=== PATIENT | female | born 1970 | race Caucasian/White ===

== ENCOUNTER 2021-10-15 03:30 | Inpatient (IN) | payer MEDICAID, SELFPAY ==
[~2021-10-15] VITALS: Ht 160 cm; Wt 81.2 kg
[2021-10-15 03:36] VITALS: BP 162/94
--- NOTE | 2021-10-15 03:42 | NUR ---
pt ambulated to bed #5
--- NOTE | 2021-10-15 03:49 | NUR ---
Patient BIB by family from home. C/O LLQ abdominal pain x 1 day. Patient reported, had LLQ abdominal pain since yesterday, vomiting , no diarrhea.
--- NOTE | 2021-10-15 04:12 | NUR ---
Dr. Luke at bedside to exam patient.
[2021-10-15] MEDS ORDERED: NACL 0.9% 1,000 ML IV ONE ×2 (04:15→05:45)
[2021-10-15] MEDS ORDERED: MORPHINE SULFATE 4 MG/ML SYR IVP ONE (04:15)
[2021-10-15] MEDS ORDERED: ONDANSETRON 4 MG/2 ML VIAL IVP ONE (04:25)
--- NOTE | 2021-10-15 04:38 | NUR ---
Patient transfer to radiology dept via wheelchair with radiolody tech.
--- NOTE | 2021-10-15 04:45 | NUR ---
Patient return back to bed.
[2021-10-15 04:58] LABS: BASOPHILS # (AUTO) 0.1 K/uL (0.00-0.22); BASOPHILS % (AUTO) 0.7 % (0.0-2.0); EOSINOPHILS # (AUTO) 0.2 K/uL (0-0.4); EOSINOPHILS % (AUTO) 2.4 % (0.0-4.0); HEMATOCRIT 40.7 % (36-48); LYMPHOCYTES % (AUTO) 23.1 % (20.5-51.1); MEAN CORPUSCULAR HEMOGLOBIN 23 pg (27-31); MEAN CORPUSCULAR HGB CONC 32 g/dL (33-37); MONOCYTES # (AUTO) 0.6 K/uL (0.8-1.0); MONOCYTES % (AUTO) 7.6 % (1.7-9.3); NEUTROPHILS # (AUTO) 5.6 K/uL (1.8-7.7); NEUTROPHILS % (AUTO) 66.2 % (42.2-75.2); PLATELET COUNT (AUTO) 322 K/uL (140-450); RED BLOOD CELL COUNT(AUTO) 5.57 MIL/uL (4.20-5.40); RED CELL DISTRIBUTION WIDTH 18.9 % (11.6-13.7); WHITE BLOOD COUNT (AUTO) 8.5 K/uL (4.8-10.8)
--- NOTE | 2021-10-15 05:28 | NUR ---
Patient reported, [facility] abdominal pain 05/07, Dr. Luke notified.
[2021-10-15] MEDS ORDERED: KETOROLAC 30 MG/ML VIAL IVP ONE (05:35)
[2021-10-15] MEDS ORDERED: cefTRIAXone 1,000 MG VIAL ONE ×2 (05:35→09:18)
[2021-10-15 06:33] LABS: ALBUMIN 3.6 g/dL (3.4-5.0); ANION GAP 15.8 (8-16); CREATININE 0.8 mg/dL (0.6-1.3); POTASSIUM 3.8 mmol/L (3.5-5.1); TOTAL BILIRUBIN 0.7 mg/dL (0.0-1.0)
--- NOTE | 2021-10-15 06:42 | NUR ---
Patient's family at bedside.
--- NOTE | 2021-10-15 07:11 | NUR ---
Report given Mod[place], CLEMENTE and endorse care of patient.
--- NOTE | 2021-10-15 07:12 | NUR ---
REPORT RECEIVED FROM ROSIE BROWN FOR PATIENT CONTINUITY OF CARE.
--- NOTE | 2021-10-15 08:20 | NUR ---
PATIENT RESTING IN BED, NO SIGNS OF DISTRESS NOTED, SAFETY PRECAUTIONS PUT INTO PLACE. WILL CONTINUE TO MONITOR.
--- NOTE | 2021-10-15 08:50 | NUR ---
PATIENT PROVIDED W/ BREAKFAST TRAY AT BEDSIDE, ALL PATIENT NEEDS MET AT THIS TIME.
[2021-10-15] MEDS ORDERED: POTASSIUM CHLORIDE 10 MEQ TABER PO PRN (09:05)
[2021-10-15] MEDS ORDERED: MAG SULF 2000 MG/WATER PREMIX 50 ML IV PRN (09:05)
[2021-10-15] MEDS ORDERED: ONDANSETRON 4 MG/2 ML VIAL IM/IVP PRN (09:10)
[2021-10-15] MEDS ORDERED: ZOLPIDEM 5 MG TAB PO PRN (09:10)
[2021-10-15] MEDS ORDERED: HYDROcodone/APAP 5/325 MG 1 TAB TAB PO PRN (09:10)
[2021-10-15] MEDS ORDERED: ACETAMINOPHEN 325 MG TAB PO PRN (09:10)
[2021-10-15] MEDS ORDERED: DOCUSATE SODIUM 100 MG GELCAP PO PRN (09:10)
[2021-10-15] MEDS ORDERED: MORPHINE SULFATE 2 MG/ML SYR IVP PRN (09:10)
[2021-10-15] MEDS ORDERED: LORazepam 2 MG/ML VIAL IM/IVP PRN (09:10)
[2021-10-15] MEDS: TAMSULOSIN 0.4 MG CAP PO SCH (09:59)
[2021-10-15] MEDS: NACL 0.9% 1,000 ML IV SCH ×2 (10:00→17:44)
--- NOTE | 2021-10-15 10:02 | NUR ---
LAB AT PATIENT BEDSIDE
--- NOTE | 2021-10-15 10:23 | NUR ---
RAD AT PATIENT BEDSIDE
[2021-10-15 10:46] LABS: PROTHROMBIN TIME 10.1 secs (10.8-13.4)
[2021-10-15 10:56] LABS: CHOL/HDL RATIO 3.7 (1-4.5); THYROID STIMULATING HORMONE 0.63 uIU/mL (0.34-3.74)
--- NOTE | 2021-10-15 14:35 | NUR ---
Patient will be admitted to care of DR CHAO. Admited to MED SURG. Will go to room 105A. Belongings list completed. Report to ROSIE REESE.
--- NOTE | 2021-10-15 14:37 | NUR ---
PATIENT HAS BEEN SCREENED AND CATEGORIZED MODERATE NUTRITION RISK. PATIENT WILL BE SEEN WITHIN 3-5 DAYS OF ADMISSION. Y[address]
--- NOTE | 2021-10-15 14:45 | NUR ---
PATIENT ADMITTED INTO ROOM 105A FROM ED VIA WHEELCHAIR. PATIENT ABLE TO AMBULATE WITH STEADY GAIT FROM W/C TO BED. PATIENT IS ALERT AND ORIENTED X 4, NO C/O PAIN DURING ADMISSION. LEFT AC IV 20G INTACT WITH ONGOING NS @ 120ML/HR. ORIENTATION PROVIDED RE:ROOM AND UNIT.
[2021-10-15 16:32] VITALS: BP 132/67
[2021-10-15 21:00] VITALS: BP 135/71
[2021-10-16] MEDS: NACL 0.9% 1,000 ML IV SCH ×2 (01:50→09:21)
[2021-10-16 03:38] VITALS: BP 135/71
--- NOTE | 2021-10-16 07:30 | NUR ---
RECEIVED REPORT FROM POUCH MAKER NURSE. PT STABLE
[2021-10-16 07:48] LABS: BASOPHILS % (AUTO) 0.7 % (0.0-2.0); EOSINOPHILS # (AUTO) 0.2 K/uL (0-0.4); HEMATOCRIT 36.2 % (36-48); HEMOGLOBIN 11.7 g/dL (12.0-16.0); LYMPHOCYTES # (AUTO) 1.8 K/uL (2.5-16.5); LYMPHOCYTES % (AUTO) 32.5 % (20.5-51.1); MEAN CORPUSCULAR HEMOGLOBIN 24 pg (27-31); MEAN CORPUSCULAR HGB CONC 32 g/dL (33-37); MEAN CORPUSCULAR VOLUME 72.6 fL (80-94); MONOCYTES # (AUTO) 0.4 K/uL (0.8-1.0); MONOCYTES % (AUTO) 7.7 % (1.7-9.3); NEUTROPHILS # (AUTO) 3.1 K/uL (1.8-7.7); NEUTROPHILS % (AUTO) 56.1 % (42.2-75.2); PLATELET COUNT (AUTO) 289 K/uL (140-450); RED BLOOD CELL COUNT(AUTO) 4.98 MIL/uL (4.20-5.40); RED CELL DISTRIBUTION WIDTH 19.3 % (11.6-13.7); WHITE BLOOD COUNT (AUTO) 5.5 K/uL (4.8-10.8)
[2021-10-16 07:53] LABS: ANION GAP 10.9 (8-16); CREATININE 0.7 mg/dL (0.6-1.3); POTASSIUM 3.9 mmol/L (3.5-5.1)
[2021-10-16 08:00] VITALS: BP 123/56
[2021-10-16 08:08] LABS: PHOSPHORUS 3.1 mg/dL (2.5-4.9)
[2021-10-16 08:33] LABS: APPEARANCE,URINE CLEAR (CLEAR); BILIRUBIN,URINE NEGATIVE (NEGATIVE); BLOOD, URINE 1+ (NEGATIVE); COLOR,URINE YELLOW (YELLOW); LEUKOCYTE ESTERASE ,URINE TRACE (NEGATIVE); NITRITE, URINE NEGATIVE (NEGATIVE); UGLUCOSE NEGATIVE (NEGATIVE)
[2021-10-16 08:52] LABS: BARBITURATE, URINE NEGATIVE ng/ml (NEG <=200); BENZODIAZEPINE, URINE NEGATIVE ng/mL (NEG <=200); CANNABINOID, URINE NEGATIVE ng/mL (NEG <=50); COCAINE, URINE NEGATIVE ng/mL (NEG <=300); PHENCYCLIDINE SCREEN,URINE NEGATIVE ng/mL (NEG <=25)
[2021-10-16 08:53] LABS: OPIATE, URINE POSITIVE ng/mL (NEG <=2000)
[2021-10-16] MEDS: TAMSULOSIN 0.4 MG CAP PO SCH (08:55)
[2021-10-16 09:06] LABS: T4 (THYROXINE) 8.1 ug/dL (4.5-12.0)
[2021-10-16 09:07] LABS: RBC,URINE 0-5 /HPF (0-5); WBC,URINE 0-5 /HPF (0-5)
[2021-10-16] MEDS ORDERED: IBUP-2213 PO (10:05)
[2021-10-16] MEDS ORDERED: TAMS0.4C96 PO (10:05)
[2021-10-16] MEDS ORDERED: CEPH-588 PO (10:11)
--- NOTE | 2021-10-16 10:15 | NUR ---
PT RESTING IN BED, NO S/S OF DISTRESS. PT HAS DC ORDER. WILL BEGIN TO PROCESS AND DETERMINE NARCOTICS AND/OR VICE DETECTIVE TIME. Addendum: 10/16/21 at 1020 by Liana Moran RN RN PT IV FLUIDS WERE STARTED. AND IVPB RUNNING PER MD ORDER. CALL LIGHT IN REACH. ALL SAFETY MEASURES IN PLACE
--- NOTE | 2021-10-16 12:20 | NUR ---
PT DISCHARGING HOME WITH FAMILY. NO S/S OF DISTRESS. ALL PERSONAL BELONGINGS IN POSSESSION. IV REMOVED, CANULA INTACT. ID BAND REMOVED. ALL SAFETY MEASURES IN PLACE
== END 2021-10-16 12:25 | disposition home or self-care (01) | DRG 463 ==
LOC: MED 03:30 → MMU 07:24 → MTU 14:03
DX: N13.6 Pyonephrosis (principal); E86.0 Dehydration; Z20.822 Contact with and (suspected) exposure to COVID-19; K80.20 Calculus of gallbladder without cholecystitis without obstruction; Z98.891 History of uterine scar from previous surgery; Z79.899 Other long term (current) drug therapy
CPT/HCPCS: 36415; 71045; 80048; 80053; 80305; 81001; 82150; 83036; 83605; 83690; 83735; 83880; 84100; 84134; 84436; 84443; 85025; 85610; 85730; 87040; 87081; 87086; 96361; 96365; 96375; 99285; J0696; J1644; J1885; J2270; J2405; J7030; J7060

== ENCOUNTER 2022-04-20 03:25 | Inpatient (IN) | payer MEDICAID, OTHER ==
[~2022-04-20] VITALS: Ht 154.9 cm; Wt 86.2 kg
[~2022-04-20 03:25] MED LIST: CEPH-588 PO; IBUP-2213 PO; TAMS0.4C96 PO
[2022-04-20 03:35] VITALS: BP 167/87
[2022-04-20] MEDS ORDERED: KETOROLAC 30 MG/ML VIAL IVP ONE (03:55)
[2022-04-20] MEDS ORDERED: KETOROLAC 30 MG/ML VIAL ONE (03:59)
[2022-04-20] MEDS ORDERED: NACL 0.9% 1,000 ML IV ONE (04:10)
[2022-04-20] MEDS ORDERED: FAMOTIDINE 20 MG/2 ML VIAL IVP ONE (04:20)
[2022-04-20] MEDS ORDERED: FAMOTIDINE 20 MG/2 ML VIAL ONE (04:22)
[2022-04-20 04:26] LABS: APPEARANCE,URINE CLEAR (CLEAR); BILIRUBIN,URINE NEGATIVE (NEGATIVE); BLOOD, URINE NEGATIVE (NEGATIVE); COLOR,URINE YELLOW (YELLOW); LEUKOCYTE ESTERASE ,URINE NEGATIVE (NEGATIVE); NITRITE, URINE POSITIVE (NEGATIVE); UGLUCOSE NEGATIVE (NEGATIVE)
[2022-04-20 04:26] LABS: BASOPHILS % (AUTO) 0.7 % (0.0-2.0); EOSINOPHILS # (AUTO) 0.3 K/uL (0-0.4); HEMATOCRIT 38.8 % (36-48); HEMOGLOBIN 12.4 g/dL (12.0-16.0); LYMPHOCYTES # (AUTO) 2.2 K/uL (2.5-16.5); LYMPHOCYTES % (AUTO) 31.7 % (20.5-51.1); MEAN CORPUSCULAR HEMOGLOBIN 24 pg (27-31); MEAN CORPUSCULAR HGB CONC 32 g/dL (33-37); MEAN CORPUSCULAR VOLUME 74.1 fL (80-94); MONOCYTES # (AUTO) 0.6 K/uL (0.8-1.0); NEUTROPHILS # (AUTO) 3.9 K/uL (1.8-7.7); NEUTROPHILS % (AUTO) 55.6 % (42.2-75.2); PLATELET COUNT (AUTO) 312 K/uL (140-450); RED BLOOD CELL COUNT(AUTO) 5.23 MIL/uL (4.20-5.40); RED CELL DISTRIBUTION WIDTH 18.7 % (11.6-13.7); WHITE BLOOD COUNT (AUTO) 7.1 K/uL (4.8-10.8)
[2022-04-20 04:50] LABS: ALBUMIN 3.2 g/dL (3.4-5.0); ANION GAP 9.6 (8-16); CARBON DIOXIDE 26.2 mmol/L (21-32); CREATININE 0.8 mg/dL (0.6-1.3); POTASSIUM 3.8 mmol/L (3.5-5.1); TOTAL BILIRUBIN 0.4 mg/dL (0.0-1.0)
[2022-04-20] MEDS ORDERED: PIPERACILLIN/TAZOBACTAM 3.375 GM in DEXTROSE 5% 50 ML IV ONE (06:55)
[2022-04-20] MEDS ORDERED: PIPERACILLIN/TAZOBACTAM 3.375 GM VIAL IV ONE ×2 (07:04→23:04)
[2022-04-20] MEDS ORDERED: ONDANSETRON 4 MG/2 ML VIAL IVP PRN (09:15)
[2022-04-20] MEDS ORDERED: MORPHINE SULFATE 2 MG/ML SYR IVP PRN (09:15)
[2022-04-20] MEDS ORDERED: ACETAMINOPHEN 325 MG TAB PO PRN (09:15)
[2022-04-20] MEDS: NACL 0.9% 1,000 ML IV SCH ×3 (10:02→22:53)
[2022-04-20 11:10] VITALS: BP 146/67
[2022-04-20 16:00] VITALS: BP 124/53
[2022-04-20 20:00] VITALS: BP 134/57
[2022-04-20] MEDS: PIPERACILLIN/TAZOBACTAM 3.375 GM in DEXTROSE 5% 50 ML IV SCH (23:06)
[2022-04-21] VITALS: BP 123/64
[2022-04-21] MEDS ORDERED: PIPERACILLIN/TAZOBACTAM 3.375 GM VIAL IV ONE (04:50)
[2022-04-21] MEDS: PIPERACILLIN/TAZOBACTAM 3.375 GM in DEXTROSE 5% 50 ML IV SCH ×4 (05:05→23:41)
[2022-04-21 07:09] LABS: ANION GAP 9.1 (8-16); CARBON DIOXIDE 26.6 mmol/L (21-32); CREATININE 0.8 mg/dL (0.6-1.3); POTASSIUM 3.7 mmol/L (3.5-5.1)
[2022-04-21 07:11] LABS: BASOPHILS % (AUTO) 0.5 % (0.0-2.0); EOSINOPHILS # (AUTO) 0.3 K/uL (0-0.4); EOSINOPHILS % (AUTO) 4.8 % (0.0-4.0); HEMATOCRIT 37.6 % (36-48); HEMOGLOBIN 12.1 g/dL (12.0-16.0); LYMPHOCYTES % (AUTO) 37.8 % (20.5-51.1); MEAN CORPUSCULAR HEMOGLOBIN 24 pg (27-31); MEAN CORPUSCULAR HGB CONC 32 g/dL (33-37); MEAN CORPUSCULAR VOLUME 74.3 fL (80-94); MONOCYTES # (AUTO) 0.5 K/uL (0.8-1.0); NEUTROPHILS # (AUTO) 2.5 K/uL (1.8-7.7); NEUTROPHILS % (AUTO) 47.9 % (42.2-75.2); PLATELET COUNT (AUTO) 270 K/uL (140-450); RED BLOOD CELL COUNT(AUTO) 5.06 MIL/uL (4.20-5.40); RED CELL DISTRIBUTION WIDTH 18.5 % (11.6-13.7); WHITE BLOOD COUNT (AUTO) 5.2 K/uL (4.8-10.8)
[2022-04-21 07:19] LABS: MAGNESIUM 2.1 mg/dL (1.8-2.4); PHOSPHORUS 2.9 mg/dL (2.5-4.9); PROTHROMBIN TIME 10.3 secs (10.8-13.4)
[2022-04-21 08:00] VITALS: BP 111/65
[2022-04-21] MEDS ORDERED: BUPIVACAINE-MPF 0.25% 30 ML VIAL INJ ONE (08:07)
[2022-04-21] MEDS ORDERED: LIDOCAINE/EPI MPF 1%1:200000 30 ML VIAL INJ ONE (08:07)
[2022-04-21] MEDS ORDERED: SEVOFLURANE 250 ML BTL INH ONE (09:16)
[2022-04-21] MEDS ORDERED: fentaNYL citrate 0.05 MG/ML VIAL ONE (09:19)
[2022-04-21] MEDS ORDERED: ATROPINE 0.4 MG/ML VIAL ONE (10:05)
[2022-04-21] MEDS ORDERED: PROPOFOL 200 MG/20 ML VIAL IV ONE (10:05)
[2022-04-21] MEDS ORDERED: ROCURONIUM 50 MG/5 ML VIAL IV ONE (10:05)
[2022-04-21] MEDS ORDERED: ONDANSETRON 4 MG/2 ML VIAL ONE (10:35)
[2022-04-21] MEDS ORDERED: GLYCOPYRROLATE 0.2 MG/ML VIAL ONE ×3 (10:35)
[2022-04-21] MEDS ORDERED: NEOSTIGMINE 1:1000 10 MG/10 ML VIAL ONE (10:35)
[2022-04-21] MEDS ORDERED: KETOROLAC 30 MG/ML VIAL ONE (10:36)
[2022-04-21] MEDS ORDERED: HYDROmorphone PFS 2 MG/ML SYR ONE (11:11)
[2022-04-21] MEDS ORDERED: LABETALOL 20 MG/4 ML VIAL IVP PRN (11:13)
[2022-04-21] MEDS ORDERED: hydrALAZINE 20 MG/ML VIAL IVP PRN (11:13)
[2022-04-21] MEDS ORDERED: METOCLOPRAMIDE 10 MG/2 ML INJ VIAL IVP PRN (11:13)
[2022-04-21] MEDS ORDERED: LACTATED RINGERS 1,000 ML IV SCH (11:15)
[2022-04-21] MEDS: HYDROmorphone 1 MG/ML AMP IVP PRN ×4 (11:16→11:46)
[2022-04-21] MEDS: NACL 0.9% 1,000 ML IV SCH ×2 (12:38→23:43)
[2022-04-21 16:00] VITALS: BP 106/63
[2022-04-21 20:00] VITALS: BP 119/66
[2022-04-22 04:00] VITALS: BP 102/52
[2022-04-22] MEDS: PIPERACILLIN/TAZOBACTAM 3.375 GM in DEXTROSE 5% 50 ML IV SCH ×3 (04:25→11:05)
[2022-04-22 07:20] LABS: BASOPHILS % (AUTO) 0.4 % (0.0-2.0); EOSINOPHILS # (AUTO) 0.1 K/uL (0-0.4); EOSINOPHILS % (AUTO) 1.1 % (0.0-4.0); HEMOGLOBIN 11.4 g/dL (12.0-16.0); LYMPHOCYTES # (AUTO) 2.1 K/uL (2.5-16.5); MEAN CORPUSCULAR HEMOGLOBIN 25 pg (27-31); MEAN CORPUSCULAR HGB CONC 33 g/dL (33-37); MEAN CORPUSCULAR VOLUME 75.2 fL (80-94); MONOCYTES # (AUTO) 0.6 K/uL (0.8-1.0); MONOCYTES % (AUTO) 7.8 % (1.7-9.3); NEUTROPHILS # (AUTO) 4.9 K/uL (1.8-7.7); NEUTROPHILS % (AUTO) 63.7 % (42.2-75.2); PLATELET COUNT (AUTO) 270 K/uL (140-450); RED BLOOD CELL COUNT(AUTO) 4.66 MIL/uL (4.20-5.40); RED CELL DISTRIBUTION WIDTH 18.9 % (11.6-13.7); WHITE BLOOD COUNT (AUTO) 7.8 K/uL (4.8-10.8)
[2022-04-22 07:27] LABS: ALBUMIN 2.6 g/dL (3.4-5.0); ANION GAP 12.2 (8-16); CARBON DIOXIDE 25.7 mmol/L (21-32); CREATININE 0.8 mg/dL (0.6-1.3); POTASSIUM 3.9 mmol/L (3.5-5.1); TOTAL BILIRUBIN 0.6 mg/dL (0.0-1.0)
[2022-04-22] MEDS: NACL 0.9% 1,000 ML IV SCH (11:05)
[2022-04-22 12:00] VITALS: BP 102/52
[2022-04-22 16:16] VITALS: BP 124/60
== END 2022-04-22 17:00 | disposition home or self-care (01) | DRG 263 ==
LOC: MED 03:25 → MMU 09:14
PROVIDERS: ADMIT Hospitalist; ATTEND Hospitalist
PROC: 0FT44ZZ Resection of Gallbladder, Percutaneous Endoscopic Approach (ICD-10-PCS; principal; 2022-04-21 09:00)
DX: K80.00 Calculus of gallbladder with acute cholecystitis without obstruction (principal); E44.1 Mild protein-calorie malnutrition; E66.01 Morbid (severe) obesity due to excess calories; Z20.822 Contact with and (suspected) exposure to COVID-19; Z68.35 Body mass index [BMI] 35.0-35.9, adult; R71.0 Precipitous drop in hematocrit
CPT/HCPCS: 36415; 74150; 76705; 80048; 80053; 81003; 81025; 82374; 83605; 83690; 83735; 84100; 85025; 85610; 85730; 86886; 86900; 86901; 87040; 87081; 93005; 96361; 96365; 96375; 99285; J0461; J1170; J1885; J2001; J2270; J2405; J2543; J2704; J2710; J3010; J3490; J7030; J7060; Q0092

== ENCOUNTER 2022-12-22 20:58 | Emergency (ER) | payer OTHER, MEDICAID ==
[~2022-12-22] VITALS: Ht 152.4 cm; Wt 81.6 kg
[~2022-12-22 20:58] MED LIST changes: -CEPH-588 PO; -TAMS0.4C96 PO
[2022-12-22 21:00] VITALS: BP 179/92
[2022-12-22] MEDS ORDERED: IBUPROFEN 600 MG TAB PO ONE (21:55)
[2022-12-22] MEDS ORDERED: NAPR-54 PO (23:17)
[2022-12-22 23:20] VITALS: BP 179/92
--- NOTE | 2022-12-22 23:20 | NUR ---
D/C BY . PRESCRIBED ALISON.
== END 2022-12-22 23:20 | disposition home or self-care (01) ==
LOC: MED 20:58
DX: S16.1XXA Strain of muscle, fascia and tendon at neck level, initial encounter (principal); Z87.448 Personal history of other diseases of urinary system; Z79.1 Long term (current) use of non-steroidal anti-inflammatories (NSAID); V89.2XXA Person injured in unspecified motor-vehicle accident, traffic, initial encounter; Y93.89 Activity, other specified; Y92.410 Unspecified street and highway as the place of occurrence of the external cause; Y99.8 Other external cause status
CPT/HCPCS: 72125; 99284